=== PATIENT | female | born 1990 | race American Indian/Alaskan Native ===

== ENCOUNTER 2020-05-27 17:33 | Emergency (ER) | payer MEDICAID ==
[2020-05-27] MEDS ORDERED: ONDANSETRON 4 MG ODT TAB PO STA (18:16)
--- NOTE | 2020-05-27 18:19 | Emergency Department Report ---
ED N/V/D HPI - General Chief complaint: Nausea/Vomiting/Diarrhea Stated complaint: VOMITING PUI?: No Time Seen by Provider: 05/27/20 18:16 Source: patient Mode of arrival: Ambulatory Limitations: No Limitations - History of Present Illness MD complaint: nausea, vomiting, diarrhea, abdominal pain -: Gradual Description of Diarrhea: water Associated Abdominal Pain: Yes (cramps) Location: diffuse Radiation: none Severity: mild Quality: aching Consistency: constant Improves with: none Worsens with: eating Context: possible food poisoning (from [employer]) - Related Data Previous Rx's Medication Instructions Recorded Last Taken Type Hyoscyamine Subl [Levsin Sl 0.125 0.125 mg SL Q6HR PRN #20 tab 05/27/20 Unknown Rx TAB] Ondansetron [Zofran ODT TAB] 8 mg PO Q12HR #14 tab.rapdis 05/27/20 Unknown Rx Allergies Allergy/AdvReac Type Severity Reaction Status Date / Time Penicillins Allergy Rash Verified 05/27/20 18:13 ED Review of Systems ROS: Stated complaint: VOMITING Other details as noted in HPI Comment: All other systems reviewed and negative ED Past Medical Hx - Past Medical History Previous Medical History?: No - Surgical History Past Surgical History?: Yes Additional Surgical History: X 4 - Social History Smoking Status: Current Every Day Smoker Substance Use Type: None - Medications Home Medications: Home Medications Medication Instructions Recorded Confirmed Last Taken Type Hyoscyamine Subl [Levsin Sl 0.125 0.125 mg SL Q6HR PRN #20 tab 05/27/20 Unknown Rx TAB] Ondansetron [Zofran ODT TAB] 8 mg PO Q12HR #14 tab.rapdis 05/27/20 Unknown Rx ED Physical Exam - General Limitations: No Limitations General appearance: alert, in no apparent distress - Head Head exam: Present: atraumatic, normocephalic - Eye Eye exam: Present: normal appearance - ENT ENT exam: Present: mucous membranes moist - Neck Neck exam: Present: normal inspection - Respiratory Respiratory exam: Present: normal lung sounds bilaterally. Absent: respiratory distress - Cardiovascular Cardiovascular Exam: Present: regular rate, normal rhythm. Absent: systolic murmur, diastolic murmur, rubs, gallop - GI/Abdominal GI/Abdominal exam: Present: soft, tenderness (To the right lower quadrant with deep palpation. No Rovsing, no Morgan Gonzalez, no Corey sign.), normal bowel sounds. Absent: hyperactive bowel sounds, organomegaly - Extremities Exam Extremities exam: Present: normal inspection, normal capillary refill - Back Exam Back exam: Present: normal inspection, CVA tenderness (L) - Neurological Exam Neurological exam: Present: alert, oriented X3, CN II-XII intact - Psychiatric Psychiatric exam: Present: normal affect, normal mood. Absent: anxious, manic - Skin Skin exam: Present: warm, dry, intact, normal color. Absent: rash ED Course Vital Signs 05/27/20 18:13 Temperature 98.0 F Pulse Rate 75 Respiratory 18 Rate Blood Pressure 126/69 O2 Sat by Pulse 100 Oximetry - Consultations Consultation #1: 05/27/20 22:45 Patient is resting comfortably no acute respiratory distress no nausea no vomiting no abdominal painAppears to be comfortable ED Medical Decision Making - Lab Data Result diagrams: 05/27/20 18:24 05/27/20 18:24 - Medical Decision Making Patient presents to the emergency department with nausea, vomiting, diarrhea, differential diagnosis includes possible acute gastroenteritis. Abdominal examination without peritoneal signs. Currently patient is euvolemic without evidence of dehydration. No evidence of surgical abdomen or other acute medical emergency including bowel obstruction, viscus perforation, vascular catastrophe, appendicitis, cholecystitis at this time. Presentation not consistent with other acute emergent causes of vomiting and diarrhea at this time. No indication for abdominal imaging Plan supportive care, oral/IV rehydration, antiemetics and reassess Critical care attestation.: If time is entered above; I have spent that time in minutes in the direct care of this critically ill patient, excluding procedure time. ED Disposition Clinical Impression: Nausea, Vomiting, Diarrhea Disposition: DC-01 TO HOME OR SELFCARE Is pt being admited?: No Does the pt Need Aspirin: No Condition: Stable Instructions: Nausea and Vomiting, Adult, [id number], Food Choices to Help Relieve Diarrhea, Adult, Viral Gastroenteritis, Adult, Salmonella Gastroenteritis, Adult Referrals: PRIMARY CARE, [Primary Care Provider] - 3-5 Days
[2020-05-27] MEDS: HYOSCYAMINE SUBL 0.125 MG TAB SL ONE ×2 (18:28→18:33)
[2020-05-27 19:07] LABS: Basophils % (Auto) 0.2 % (0.0-1.8); Hematocrit 39.8 % (30.3-42.9); Hemoglobin 13.3 gm/dl (10.1-14.3); Lymphocytes # (Auto) 0.8 K/mm3 (1.2-5.4); Lymphocytes % (Auto) 7.9 % (13.4-35.0); Mean Corpuscular HGB Conc 33 % (30-34); Mean Corpuscular Volume 97 fl (79-97); Monocytes # (Auto) 0.4 K/mm3 (0.0-0.8); Monocytes % (Auto) 4.2 % (0.0-7.3); Platelet Count 205 K/mm3 (140-440); Red Cell Distribution Width 14.3 % (13.2-15.2)
[2020-05-27 19:39] LABS: Alanine Aminotransferase 34 units/L (7-56); Blood Urea Nitrogen 23 mg/dL (7-17); Calcium 9.7 mg/dL (8.4-10.2); Hemolysis Index 5
[2020-05-27 19:50] LABS: BUN/Creatinine Ratio 33
[2020-05-27 23:19] VITALS: BP 119/79
== END 2020-05-27 23:16 | disposition home or self-care (01) ==
LOC: ED 17:33
DX: R11.2 Nausea with vomiting, unspecified (principal); R19.7 Diarrhea, unspecified; R10.31 Right lower quadrant pain; F17.200 Nicotine dependence, unspecified, uncomplicated; Z98.890 Other specified postprocedural states; Z79.899 Other long term (current) drug therapy; Z88.0 Allergy status to penicillin
CPT/HCPCS: 36415; 80053; 83690; 85025; Q0162

== ENCOUNTER 2020-12-01 11:56 | Emergency (ER) | payer MEDICAID ==
[2020-12-01 13:11] VITALS: BP 125/83
--- NOTE | 2020-12-01 13:17 | Emergency Department Report ---
ED ENT HPI - General Chief complaint: Dental/Oral Stated complaint: FACIAL EDEMA/TOOTHACHE Time Seen by Provider: 12/01/20 13:11 Source: patient Mode of arrival: Ambulatory Limitations: No Limitations - History of Present Illness Initial comments: This is a 30-year-old female nontoxic, well nourished in appearance, no acute signs of distress presents to the ED with c/o of right upper toothache several days. Patient denies following up with a dentist. Patient describes toothache as aching level of 8 out of 10. Patient denies any facial swelling. Patient denies any numbness, tingling, fever, chills, headache, stiff neck, abdominal pain, chest pain, shortness of breath. Patient stated allergies to penicillin. Denies any significant past medical history. MD complaint: tooth pain -: days(s) Location: tooth # 1 - Pain here Severity: mild Severity scale (0 -10): 8 Quality: aching Consistency: constant Improves with: none Worsens with: none Context- Dental: history of dental caries, poor dental care Associated Symptoms: gum swelling, toothache. denies: fever, cough, pain with swallowing, sore throat, tinnitus, hearing loss, discharge from ear, rhinorrhea - Related Data Previous Rx's Medication Instructions Recorded Last Taken Type Hyoscyamine Subl [Levsin Sl 0.125 0.125 mg SL Q6HR PRN #20 tab 05/27/20 Unknown Rx TAB] Ondansetron [Zofran ODT TAB] 8 mg PO Q12HR #14 tab.rapdis 05/27/20 Unknown Rx Promethazine [Phenergan 6.25 mg/5 10 ml PO Q6H PRN #240 ml 05/27/20 Unknown Rx ml ORAL LIQ] Chlorhexidine Mouthwash [Peridex] 15 ml MM BID #1 bottle 12/01/20 Unknown Rx Clindamycin [Clindamycin CAP] 300 mg PO Q8H #21 cap 12/01/20 Unknown Rx Naproxen 500 mg PO Q12H PRN #12 tablet 12/01/20 Unknown Rx Allergies Allergy/AdvReac Type Severity Reaction Status Date / Time Penicillins Allergy Rash Verified 12/01/20 13:06 ED Dental HPI - General Chief complaint: Dental/Oral Stated complaint: FACIAL EDEMA/TOOTHACHE Time Seen by Provider: 12/01/20 13:11 Source: patient Mode of arrival: Ambulatory Limitations: No Limitations - Related Data Previous Rx's Medication Instructions Recorded Last Taken Type Hyoscyamine Subl [Levsin Sl 0.125 0.125 mg SL Q6HR PRN #20 tab 05/27/20 Unknown Rx TAB] Ondansetron [Zofran ODT TAB] 8 mg PO Q12HR #14 tab.rapdis 05/27/20 Unknown Rx Promethazine [Phenergan 6.25 mg/5 10 ml PO Q6H PRN #240 ml 05/27/20 Unknown Rx ml ORAL LIQ] Chlorhexidine Mouthwash [Peridex] 15 ml MM BID #1 bottle 12/01/20 Unknown Rx Clindamycin [Clindamycin CAP] 300 mg PO Q8H #21 cap 12/01/20 Unknown Rx Naproxen 500 mg PO Q12H PRN #12 tablet 12/01/20 Unknown Rx Allergies Allergy/AdvReac Type Severity Reaction Status Date / Time Penicillins Allergy Rash Verified 12/01/20 13:06 ED Review of Systems ROS: Stated complaint: FACIAL EDEMA/TOOTHACHE Other details as noted in HPI Comment: All other systems reviewed and negative Constitutional: denies: chills, fever Eyes: denies: eye pain, eye discharge, vision change ENT: dental pain. denies: ear pain, throat pain Respiratory: denies: cough, shortness of breath, wheezing Cardiovascular: denies: chest pain, palpitations Endocrine: no symptoms reported Gastrointestinal: denies: abdominal pain, nausea, diarrhea Genitourinary: denies: urgency, dysuria, discharge Musculoskeletal: denies: back pain, joint swelling, arthralgia Skin: denies: rash, lesions Neurological: denies: headache, weakness, paresthesias Psychiatric: denies: anxiety, depression Hematological/Lymphatic: denies: easy bleeding, easy bruising ED Past Medical Hx - Past Medical History Additional medical history: ANXIETY - Surgical History Additional Surgical History: X 4 - Social History Smoking Status: Current Every Day Smoker Substance Use Type: None - Medications Home Medications: Home Medications Medication Instructions Recorded Confirmed Last Taken Type Hyoscyamine Subl [Levsin Sl 0.125 0.125 mg SL Q6HR PRN #20 tab 05/27/20 Unknown Rx TAB] Ondansetron [Zofran ODT TAB] 8 mg PO Q12HR #14 tab.rapdis 05/27/20 Unknown Rx Promethazine [Phenergan 6.25 mg/5 10 ml PO Q6H PRN #240 ml 05/27/20 Unknown Rx ml ORAL LIQ] Chlorhexidine Mouthwash [Peridex] 15 ml MM BID #1 bottle 12/01/20 Unknown Rx Clindamycin [Clindamycin CAP] 300 mg PO Q8H #21 cap 12/01/20 Unknown Rx Naproxen 500 mg PO Q12H PRN #12 tablet 12/01/20 Unknown Rx ED Physical Exam - General Limitations: No Limitations General appearance: alert, in no apparent distress - Head Head exam: Present: atraumatic, normocephalic - Eye Eye exam: Present: normal appearance - Expanded ENT Exam Expanded Ear exam: Present: normal external inspection Mouth exam: Present: normal external inspection, tongue normal. Absent: drooling, trismus, muffled voice Teeth exam: Present: dental caries, fractured tooth #, dental tenderness #, gingival enlargement, other (No facial swelling. No abscess.) Throat exam: Positive: normal inspection, other (Uvula midline). Negative: tonsillar erythema, tonsillomegaly, tonsillar exudate, R peritonsillar mass, L peritonsillar mass - Neck Neck exam: Present: normal inspection, full ROM. Absent: tenderness, meningismus, lymphadenopathy - Respiratory Respiratory exam: Present: normal lung sounds bilaterally. Absent: respiratory distress - Cardiovascular Cardiovascular Exam: Present: regular rate - Extremities Exam Extremities exam: Present: full ROM - Back Exam Back exam: Present: full ROM - Neurological Exam Neurological exam: Present: alert, oriented X3, normal gait - Psychiatric Psychiatric exam: Present: normal affect, normal mood - Skin Skin exam: Present: warm, dry, intact, normal color. Absent: rash ED Course Vital Signs 12/01/20 12/01/20 13:09 13:10 Temperature 99 F Pulse Rate 59 L Respiratory 18 Rate Blood Pressure 125/83 O2 Sat by Pulse 100 Oximetry - Reevaluation(s) Reevaluation #1: 12/01/20 13:16 Patient is speaking in full sentences with no signs of distress noted. ED Medical Decision Making - Medical Decision Making This is a 30-year-old female that presents with gingivitis and dental caries. Patient is stable and was examined by me. Exam does not show any dental abscess. Patient be discharged with clindamycin. Patient was instructed to follow-up with a dentist doctor in 3-5 days or if symptoms worsen and continue return to emergency room as soon as possible. At time of discharge, the patient does not seem toxic or ill in appearance. No acute signs of distress noted. Patient agrees to discharge treatment plan of care. No further questions noted by the patient. Critical care attestation.: If time is entered above; I have spent that time in minutes in the direct care of this critically ill patient, excluding procedure time. ED Disposition Clinical Impression: Dental caries, Gingivitis Disposition: HOME / SELF CARE / HOMELESS Is pt being admited?: No Does the pt Need Aspirin: No Condition: Stable Additional Instructions: Follow-up with a dentist doctor in 3-5 days or if symptoms worsen and continue return to emergency room as soon as possible. Prescriptions: Clindamycin [Clindamycin CAP] 300 mg PO Q8H #21 cap Naproxen 500 mg PO Q12H PRN #12 tablet PRN Reason: Pain , Severe (7-10) Chlorhexidine Mouthwash [Peridex] 15 ml MM BID #1 bottle Referrals: PRIMARY CAREMD [Referring] - 3-5 Days JUWAN CLARKE MD [Staff Physician] - 3-5 Days [facility] [Outside] - 3-5 Days [facility] [Outside] - 3-5 Days Forms: Work/School Release Form(ED) Time of Disposition: 13:20
== END 2020-12-02 00:47 | disposition home or self-care (01) ==
LOC: ED 11:56
DX: K02.9 Dental caries, unspecified (principal); K05.10 Chronic gingivitis, plaque induced; F41.8 Other specified anxiety disorders; Z98.890 Other specified postprocedural states; F17.200 Nicotine dependence, unspecified, uncomplicated; Z88.0 Allergy status to penicillin
CPT/HCPCS: 99281

== ENCOUNTER 2021-05-29 20:17 | Emergency (ER) | payer MEDICAID ==
[2021-05-29 21:09] VITALS: BP 108/81
[2021-05-29 23:34] LABS: Bilirubin,Urine NEG (Negative); Blood,Urine SM (Negative); Color,Urine Yellow (Yellow); Protein,Urine <15 mg/dL mg/dL (Negative); RBC,Urine < 1.0 /HPF (0.0-6.0); Urobilinogen,Urine < 2.0 mg/dL (<2.0)
== END 2021-05-29 22:59 | disposition left against medical advice (07) ==
LOC: ED 20:17
DX: R11.0 Nausea (principal); Z53.21 Procedure and treatment not carried out due to patient leaving prior to being seen by health care provider
CPT/HCPCS: 81001